=== PATIENT | male | born 1960 | race Caucasian/White ===

== ENCOUNTER 2022-01-19 17:37 | Emergency (ER) | payer OTHER ==
[2022-01-19] MEDS ORDERED: CEPHALEXIN500 MG PO (20:49)
[2022-01-19] MEDS ORDERED: NORCO 5-325 TA1 EACH PO (20:50)
== END 2022-01-19 20:56 | disposition home or self-care (01) ==
LOC: FER 17:37
DX: L03.114 Cellulitis of left upper limb (principal)
CPT/HCPCS: 36415; 73110; 84550